=== PATIENT | female | born 1970 | race American Indian/Alaskan Native ===

== ENCOUNTER 2019-07-19 21:08 | Emergency (ER) | payer SELFPAY ==
--- NOTE | 2019-07-19 21:40 | Event Note ---
ED Screening Note Date of service: 07/19/19 Time: 21:37 ED Screening Note: Pt complains of right lower back pain radiating down right leg x 3 days. Denies injury. +numbness/tingling. Denies loss of bladder/bowel control or weakness This initial assessment/diagnostic orders/clinical plan/treatment(s) is/are subject to change based on patients health status, clinical progression and re- assessment by fellow clinical providers in the ED. Further treatment and workup at subsequent clinical providers discretion. Patient/guardian urged not to elope from the ED as their condition may be serious if not clinically assessed and managed. Initial orders include:
[2019-07-19] MEDS ORDERED: TORADOL IM ONE (21:41)
--- NOTE | 2019-07-19 22:40 | XRay Report ---
Lumbosacral spine, 3 views INDICATION: Right leg pain x2 days without injury FINDINGS: The vertebral body heights and disc spaces are preserved. No fracture or spondylolisthesis. No spurring or arthritis. No bony abnormality identified. Impression: Normal lumbar spine radiograph. Signer Name: Nayan Diane MD Signed: 07/19/2019 10:35 PM Workstation Name: [id number]
[2019-07-19] MEDS ORDERED: ROBAXIN PO ONE (22:41)
[2019-07-20] MEDS ORDERED: NORCO 5/325 PO ONE (01:18)
[2019-07-20] MEDS ORDERED: DELTASONE PO ONE (01:18)
--- NOTE | 2019-07-20 01:25 | Emergency Department Report ---
ED Back Pain/Injury HPI - General Chief Complaint: Extremity Injury, Lower Stated Complaint: RT SIDE PAIN FROM HIP TO FOOT Time Seen by Provider: 07/20/19 01:02 Source: patient Limitations: No Limitations - History of Present Illness Initial Comments: Pt is a 49 y/o aaf , obese, pt has hx of chronic low back pain with sciatica. Pt presents for low back pain radiating to right leg. Pt denies fall injury or trauma. Symptoms started 3 days ago after ackward reaching. Pt descrobed RLE pain as buring and tingling. Denies loss of bladder/bowel control or weakness , pt is ambulatory to baseline per patient. MD Complaint: back pain Onset/Timin -: days(s) Similar Symptoms Previously: Yes Place: work Radiation: right leg Severity: moderate Severity scale (0 -10): 5 Quality: burning, aching Consistency: constant Improves With: none Worsens With: movement, other (bending twisting) Context: turning/twisting, bending Associated Symptoms: denies: weakness, difficulty walking, difficulty urinating, incontinence, constipation, headaches, nausea/vomiting, shortness of breath - Related Data Previous Rx's Medication Instructions Recorded Last Taken Type Diclofenac Dr (Nf) 50 mg PO TID PRN #30 tablet.dr 07/20/19 Unknown Rx Menthol/Camphor [[place] 1 applicatio TP QID PRN #1 tube 07/20/19 Unknown Rx Ointment] methOCARBAMOL [Robaxin TAB] 500 mg PO TID PRN #30 tab 07/20/19 Unknown Rx predniSONE [Deltasone] 40 mg PO QDAY 5 Days #10 tab 07/20/19 Unknown Rx Allergies Allergy/AdvReac Type Severity Reaction Status Date / Time No Known Allergies Allergy Verified 07/19/19 21:38 ED Review of Systems ROS: Stated complaint: RT SIDE PAIN FROM HIP TO FOOT Other details as noted in HPI Constitutional: denies: chills, fever Eyes: denies: eye pain, eye discharge, vision change ENT: denies: ear pain, throat pain Respiratory: denies: cough, shortness of breath, wheezing Cardiovascular: denies: chest pain, palpitations Endocrine: no symptoms reported Gastrointestinal: denies: abdominal pain, nausea, vomiting, diarrhea Genitourinary: denies: urgency, dysuria, discharge Musculoskeletal: back pain, arthralgia, myalgia Skin: denies: rash, lesions Neurological: denies: headache, weakness, paresthesias Psychiatric: denies: anxiety, depression Hematological/Lymphatic: denies: easy bleeding, easy bruising ED Past Medical Hx - Past Medical History Previous Medical History?: No - Surgical History Past Surgical History?: No - Social History Smoking Status: Never Smoker Substance Use Type: None - Medications Home Medications: Home Medications Medication Instructions Recorded Confirmed Last Taken Type Diclofenac Dr (Nf) 50 mg PO TID PRN #30 tablet.dr 07/20/19 Unknown Rx Menthol/Camphor [[place] 1 applicatio TP QID PRN #1 tube 07/20/19 Unknown Rx Ointment] methOCARBAMOL [Robaxin TAB] 500 mg PO TID PRN #30 tab 07/20/19 Unknown Rx predniSONE [Deltasone] 40 mg PO QDAY 5 Days #10 tab 07/20/19 Unknown Rx ED Physical Exam - General Limitations: No Limitations General appearance: alert, in no apparent distress - Head Head exam: Present: atraumatic, normocephalic - Eye Eye exam: Present: normal appearance, PERRL, EOMI Pupils: Present: normal accommodation - ENT ENT exam: Present: mucous membranes moist - Neck Neck exam: Present: normal inspection, full ROM. Absent: tenderness (no posterior vertebral point tenderness no swelling no deformity no crepitus ), meningismus, lymphadenopathy, thyromegaly - Expanded Neck Exam Expanded Neck exam: Present: tenderness (rom intact to all quads without restriction). Absent: midline deformity, anterior neck swelling, thyroid mass, carotid bruit, tracheal deviation - Respiratory Respiratory exam: Present: normal lung sounds bilaterally. Absent: respiratory distress, wheezes, stridor, chest wall tenderness - Cardiovascular Cardiovascular Exam: Present: regular rate, normal rhythm, normal heart sounds. Absent: systolic murmur, diastolic murmur, rubs, gallop - GI/Abdominal GI/Abdominal exam: Present: soft, normal bowel sounds. Absent: distended, tenderness, bruit, hernia - Rectal Rectal exam: Present: deferred - Extremities Exam Extremities exam: Present: normal inspection, full ROM, normal capillary refill. Absent: tenderness, pedal edema, joint swelling, calf tenderness - Back Exam Back exam: Present: normal inspection, full ROM, tenderness, muscle spasm, paraspinal tenderness. Absent: CVA tenderness (R), CVA tenderness (L), vertebral tenderness, rash noted - Neurological Exam Neurological exam: Present: alert, oriented X3, CN II-XII intact, normal gait, reflexes normal. Absent: motor sensory deficit - Expanded Neurological Exam Expanded Patient oriented to: Present: person, place, time Speech: Present: fluid speech Cranial nerves: EOM's Intact: Normal, Gag Reflex: Normal, Tongue Deviation: Normal, Nystagmus: Normal Upper motor neuron: Alfredo Neglect: Normal, Pronator Drift: Normal Sensory exam: Lower Extremity Light Touch: Normal, Lower Extremity Pin Prick: Normal, Lower Extremity Temperature: Normal, LE 2 Point Discrimination: Normal Motor strength exam: RUE: 5, LUE: 5, RLE: 5, LLE: 5 DTR: bicep (R): 2+, bicep (L): 2+, ankle (R): 2+, ankle (L): 2+ Best Eye Response (Juan): (4) open spontaneously Best Motor Response ([place]): (6) obeys commands Best Verbal Response (Juan): (5) oriented Juan Total: 15 - Psychiatric Psychiatric exam: Present: normal affect, normal mood - Skin Skin exam: Present: warm, dry, intact, normal color. Absent: rash ED Course Vital Signs 07/19/19 21:14 Temperature 98.0 F Pulse Rate 74 Respiratory 18 Rate Blood Pressure 151/87 O2 Sat by Pulse 99 Oximetry ED Medical Decision Making - Radiology Data Radiology results: report reviewed, image reviewed xray normal no fracture no soft tissue abnormality. - Medical Decision Making this is a lumbar strain , xray normal, there is no neuro deficit, plan, nsaids, muscle relaxant, analgesic balm, steriods, back exercises , moist heat therapy , follow up with pcp in 2-3 days, pt verbalized agreement and understanding of same. pt dc'd to home in stable condition at this time. Critical care attestation.: If time is entered above; I have spent that time in minutes in the direct care of this critically ill patient, excluding procedure time. ED Disposition Clinical Impression: Low back strain Qualifiers: Encounter type: initial encounter Qualified Code(s): S39.012A - Strain of muscle, fascia and tendon of lower back, initial encounter Disposition: DC-01 TO HOME OR SELFCARE Is pt being admited?: No Does the pt Need Aspirin: No Condition: Stable Instructions: Muscle Strain (ED), Core Strengthening Exercises (GEN), Low Back Strain (ED) Prescriptions: predniSONE [Deltasone] 40 mg PO QDAY 5 Days #[address] (Nf) 50 mg PO TID PRN #30 tablet.dr PRN Reason: pain methOCARBAMOL [Robaxin TAB] 500 mg PO TID PRN #30 tab PRN Reason: Muscle Spasm Menthol/Camphor [[place] Ointment] 1 applicatio TP QID PRN #1 tube PRN Reason: pain Referrals: WICHO GUERRA MD [Staff Physician] - 3-5 Days Forms: Work/School Release Form(ED) Time of Disposition: 01:36
[2019-07-20 02:10] VITALS: BP 133/77
== END 2019-07-20 02:09 | disposition home or self-care (01) ==
LOC: ED 21:08
DX: S39.012A Strain of muscle, fascia and tendon of lower back, initial encounter (principal); X58.XXXA Exposure to other specified factors, initial encounter; Y93.89 Activity, other specified; Y92.89 Other specified places as the place of occurrence of the external cause; Y99.8 Other external cause status
CPT/HCPCS: 72100; 96372; 99283; J7512